=== PATIENT | female | born 1965 | race Caucasian/White ===

== ENCOUNTER 2018-04-20 15:25 | Inpatient (IN) | payer OTHER ==
--- OUTSIDE RECORDS SUMMARY | 2018-04-20 15:49 | XMS REPORT ---
:1965 Author Organization [facility] Address [address] [place] [address] Care Team Providers Name Role Phone Unavailable Unavailable Unavailable Payers Payer Name Policy Type Policy Number Effective Date Expiration Date Problems This patient has no known problems. Allergies, Adverse Reactions, Alerts Allergy Name Allergy Status Severity Reaction(s) Onset Inactive Treating Comments Type Date Date Clinician No Known DA Active U 2017-02 Allergies 0-17 00:00: 00 No Known DA Active U 2017-02 Allergies 0-16 00:00: 00 No Known Drug DA Active U 2000- Intolerances 3-06 00:00: 00 Medications This patient has no known medications.
[2018-04-20 16:38] LABS: Absolute Lymphocytes (CBC) 0.4 K/uL (0.7-4.9); Absolute Monocytes 0.3 K/uL (0.1-1.3); Absolute Neutrophil 0.3 K/uL (1.8-8.0); Basophils % 0.3 % (0-1.3); Hematocrit 31.2 % (36.0-45.0); Lymphocytes % 37.9 % (15.3-44.8); MPV 10.1 fL (7.6-11.3); Monocytes % 29.2 % (3.3-12.3); RBC Red Blood Cell Count 2.66 M/uL (3.86-4.86)
[2018-04-20 16:41] LABS: Protime INR 1.06
[2018-04-20 16:47] LABS: ALT/SGPT 30 U/L (12-78); AST/SGOT 22 U/L (15-37); Albumin 3.4 g/dL (3.4-5.0); Alkaline Phosphatase 77 U/L (45-117); BUN Blood Urea Nitrogen 12 mg/dL (7-18); Bicarbonate 28 mmol/L (21-32); Bilirubin Direct 0.1 mg/dL (0-0.2); Bilirubin Total 0.6 mg/dL (0.2-1.0); CKMB Creatine Kinase MB < 1.0 ng/mL (0.3-3.6); Creatine Phosphokinase 25 U/L (26-192); Glucose Level 106 mg/dL (74-106); Lipase 78 U/L (73-393); Potassium 3.1 mmol/L (3.5-5.1); Sodium Level 140 mmol/L (136-145); Troponin (Emerg Dept Use Only) < 0.02 ng/mL (0.0-0.045)
[2018-04-20] MEDS ORDERED: ACETAMINOPHEN 325 MG TABLET ONE (17:00)
[2018-04-20] MEDS ORDERED: NA CHLORIDE 0.9% 1,000 ML ONE (17:01)
[2018-04-20] MEDS ORDERED: ONDANSETRON 4 MG/2 ML VIAL ONE (17:01)
--- NOTE | 2018-04-20 17:08 | RAD REPORT ---
EXAM DESCRIPTION: RAD - Chest Single View - 04/20/2018 4:58 pm CLINICAL HISTORY: Cough, fever COMPARISON: June 2011 TECHNIQUE: AP portable chest image was obtained 1648 hours . FINDINGS: No pneumonia findings. Lung cramer are clear. Left-sided Port-A-Cath is in place. Breast i mplants or tissue expanders are in place. Heart and vasculature are normal. No measurable pleural eff usion and no pneumothorax. No acute bony abnormality seen. No acute aortic findings suspected. IMPRESSION: No acute cardiopulmonary process.
[2018-04-20 17:14] LABS: Platelet Estimate DECR
[2018-04-20 17:21] LABS: Blood Morphology Comment NOTED (NOT SEEN); Dohle Bodies PRESENT; Hypochromasia 1+
[2018-04-20 17:32] LABS: Urine Bacteria <20 /HPF (<20); Urine RBC <5 /HPF (NONE SEEN)
[2018-04-20 17:33] LABS: Urine Culture Reflex Order NOT NEEDED; Urine Mucus 3+ /HPF (NONE SEEN)
--- NOTE | 2018-04-20 17:41 | EDPHYS ---
Physician Documentation [facility] Name: Naz Wallis Age: 53 yrs Sex: Female : 1965 Arrival Date: 04/20/2018 Time: 15:29 Bed 24 Private MD: None, None ED Physician Maurice Ma HPI: 04/20 16:44 This 53 yrs old Female presents to ER via Ambulatory with complaints of pm1 Fever, Diarrhea. 16:45 The patient reports fever, that was measured at 102 degrees Fahrenheit. Onset: The pm1 symptoms/episode began/occurred 3 day(s) ago. Modifying factors: there are no obvious modifying factors. Associated signs and symptoms: Pertinent positives: cough, that is dry, diarrhea, nausea, sore throat. The patient has not experienced similar symptoms in the past. The patient has been recently seen at an urgent care, last week, for similar complaints, labs were performed, was given a prescription for antibiotics. Presenting with complaints of fever, cough, sore throat and diarrhea. Seen at urgent care 3 days ago and had negative strep and flu swab. Was discharged home with Augmentin. 2 days ago onset of nausea and diarrhea. Patient had her most recent chemotherapy treatment 6 days ago. 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 - Social history:: Smoking status: Patient/guardian denies using tobacco. - Ebola Screening: : No symptoms or risks identified at this time. ROS: 16:50 Eyes: Negative for injury, pain, redness, and discharge. pm1 16:50 Neck: Negative for injury, pain, and swelling, Cardiovascular: Negative for chest pain, palpitations, and edema. 16:50 Back: Negative for injury and pain, : Negative for injury, bleeding, discharge, and swelling, MS/Extremity: Negative for injury and deformity, Skin: Negative for injury, rash, and discoloration, Neuro: Negative for headache, weakness, numbness, tingling, and seizure. 16:50 Constitutional: Positive for body aches, fever, Negative for poor PO intake. 16:50 ENT: Positive for sore throat, Negative for drainage from ear(s), ear pain. 16:50 Respiratory: Positive for cough, Negative for shortness of breath, sputum production, wheezing. 16:50 Abdomen/GI: Positive for nausea, diarrhea, Negative for vomiting, constipation. Exam: 16:50 Constitutional: This is a well developed, well nourished patient who is awake, alert, pm1 and in no acute distress. Head/Face: Normocephalic, atraumatic. Eyes: Pupils equal round and reactive to light, extra-ocular motions intact. Lids and lashes normal. Conjunctiva and sclera are non-icteric and not injected. Cornea within normal limits. Periorbital areas with no swelling, redness, or edema. ENT: Nares patent. No nasal discharge, no septal abnormalities noted. Tympanic membranes are normal and external auditory canals are clear. Oropharynx with no redness, swelling, or masses, exudates, or evidence of obstruction, uvula midline. Mucous membranes moist. Neck: Trachea midline, no thyromegaly or masses palpated, and no cervical lymphadenopathy. Supple, full range of motion without nuchal rigidity, or vertebral point tenderness. No Meningismus. Chest/axilla: Normal chest wall appearance and motion. Nontender with no deformity. No lesions are appreciated. Cardiovascular: Regular rate and rhythm with a normal S1 and S2. No gallops, murmurs, or rubs. Normal PMI, no JVD. No pulse deficits. Respiratory: Lungs have equal breath sounds bilaterally, clear to auscultation and percussion. No rales, rhonchi or wheezes noted. No increased work of breathing, no retractions or nasal flaring. Abdomen/GI: Soft, non-tender, with normal bowel sounds. No distension or tympany. No guarding or rebound. No evidence of tenderness throughout. Back: No spinal tenderness. No costovertebral tenderness. Full range of motion. Skin: Warm, dry with normal turgor. Normal color with no rashes, no lesions, and no evidence of cellulitis. MS/ Extremity: Pulses equal, no cyanosis. Neurovascular intact. Full, normal range of motion. 16:50 Neuro: Orientation: is normal, Motor: is normal, moves all fours. Vital Signs: 15:37 BP 95 / 63; Pulse 105; Resp 18 S; Temp 99.8(O); Pulse Ox 97% on R/A; Weight 76.2 kg aa5 (R); Height 5 ft. 6 in. (167.64 cm) (R); Pain 7/10; 16:02 Temp 100.3; ls4 18:00 BP 106 / 70; Pulse 98; Resp 16; Pulse Ox 99% on R/A; Pain 3/10; ls4 19:39 BP 107 / 64; Pulse 89; Resp 16; Temp 99.9(O); Pulse Ox 99% on R/A; Pain 3/10; ls4 19:43 BP 107 / 69; Pulse 88; Resp 18; Pulse Ox 100% on R/A; mg2 15:37 Body Mass Index 27.11 (76.20 kg, 167.64 cm) aa5 MDM: 15:52 Patient medically screened. pm1 16:39 Data reviewed: vital signs. Data interpreted: Pulse oximetry: on room air is 97 %. pm1 Interpretation: normal. 17:30 ED course: Patient with absolute neutrophil count of 336. Will cover patient with broad pm1 spectrum antibiotics, Tamiflu, and admit patient. 17:39 Counseling: I had a detailed discussion with the patient and/or guardian regarding: the pm1 historical points, exam findings, and any diagnostic results supporting the discharge/admit diagnosis, lab results, radiology results, the need for further work-up and treatment in the hospital. 17:39 Physician consultation: Ruba Lew MD was called at 17:39, was contacted at 17:39, pm1 regarding admission, patient's condition, and will see patient. 04/20 16:03 Order name: Urine Culture pm04/20 16:03 Order name: Basic Metabolic Panel; Complete Time: 16:52 pm04/20 16:03 Order name: Blood Culture Adult (2) pm1 04/20 16:03 Order name: CBC with Diff; Complete Time: 17:24 pm04/20 16:03 Order name: Ckmb; Complete Time: 16:52 pm04/20 16:03 Order name: CPK; Complete Time: 16:52 pm04/20 16:03 Order name: Lactate; Complete Time: 16:52 pm04/20 16:03 Order name: LFT's; Complete Time: 16:52 pm04/20 16:03 Order name: Lipase; Complete Time: 16:52 pm04/20 16:03 Order name: Procalcitonin; Complete Time: 17:07 pm04/20 16:03 Order name: Protime (+inr); Complete Time: 17:02 pm04/20 16:03 Order name: Ptt, Activated; Complete Time: 17:02 pm04/20 16:03 Order name: Troponin (emerg Dept Use Only); Complete Time: 16:52 pm04/20 16:03 Order name: Urine Microscopic Only; Complete Time: 17:53 pm04/20 16:03 Order name: Chest Single View XRAY; Complete Time: 17:09 pm04/20 16:03 Order name: Flu; Complete Time: 17:02 pm04/20 16:03 Order name: Strep; Complete Time: 17:02 pm04/20 16:03 Order name: [place] Screen Profile; Complete Time: 17:05 pm04/20 16:56 Order name: Throat Culture EDKS 04/20 17:07 Order name: Urine Dipstick--Ancillary (enter results) 04/20 17:13 Order name: Manual Differential; Complete Time: 17:24 EDMS 04/20 17:53 Order name: Stool Culture 04/20 17:53 Order name: Ova And Parasites pm04/20 17:53 Order name: Fecal Leukocyte Stain 04/20 17:53 Order name: CDIFF 04/20 16:03 Order name: Cardiac monitoring; Complete Time: 16:25 pm04/20 16:03 Order name: EKG - Nurse/Tech; Complete Time: 16:25 pm04/20 16:03 Order name: IV Saline Lock - Large Bore; Complete Time: 16:25 pm04/20 16:03 Order name: Labs collected and sent; Complete Time: 16:25 pm04/20 16:03 Order name: O2 Per Protocol; Complete Time: 16:25 pm04/20 16:03 Order name: O2 Sat Monitoring; Complete Time: 16:25 pm04/20 16:03 Order name: Urine Dipstick-Ancillary (obtain specimen); Complete Time: 17:24 pm04/20 17:42 Order name: EKG Electrocardiogram; Complete Time: 18:34 EDMS Administered Medications: 17:02 Drug: Zofran 4 mg Route: IVP; Site: left hand; ls4 17:53 Follow up: Response: No adverse reaction; Marked relief of symptoms ls4 17:03 Drug: Tylenol 1000 mg Route: PO; ls4 18:35 Follow up: Response: No adverse reaction; Marked relief of symptoms ls4 17:49 Drug: Cefepime 1 grams Route: IVPB; Rate: 200 ml/hr; Infused Over: 30 mins; Site: left ls4 antecubital; 18:19 Follow up: IV Status: Completed infusion; IV Intake: 100ml ls4 17:49 Drug: Tamiflu 75 mg Route: PO; ls4 18:30 Follow up: Response: No adverse reaction ls4 18:30 Drug: vancoMYCIN 1 grams Route: IVPB; Infused Over: 2 hrs; Site: left antecubital; ls4 20:21 Follow up: Response: No adverse reaction; IV Status: Infusion continued upon admission mg2 18:53 Drug: Potassium Effervescent Tablet 50 mEq Route: PO; ls4 19:39 Follow up: Response: No adverse reaction ls4 Disposition: 22:48 Co-signature as Attending Physician, Maurice Ma MD. ma2 Disposition: 04/20/18 17:40 Hospitalization ordered by Ruba Lew for Inpatient Admission. Preliminary diagnosis are Neutropenic fever, Influenza due to identified novel influenza A virus, Diarrhea, unspecified. - Bed requested for Telemetry/MedSurg (Inpatient). - Status is Inpatient Admission. mg2 - Condition is Stable. - Problem is new. - Symptoms have improved. UTI on Admission? No Signatures: Dispatcher [employer] EDMS Lisset Benjamin RN RN aa5 Selam Montes De Oca RN RN cg Donovan Tovar NP [employer] pm1 Maurice Ma MD MD ma2 Jarod Ayala RN RN mg2 Neha Acevedo RN RN ls4 Corrections: (The following items were deleted from the chart) 17:53 17:40 Hospitalization Ordered by Ruba Lew MD for Inpatient Admission. Preliminary pm1 diagnosis is Neutropenic fever; Influenza due to identified novel influenza A virus. Bed requested for Telemetry/MedSurg (Inpatient). Status is Inpatient Admission. Condition is Stable. Problem is new. Symptoms have improved. UTI on Admission? No. pm1 19:38 17:53 04/20/2018 17:40 Hospitalization Ordered by Ruba Lew MD for Inpatient cg Admission. Preliminary diagnosis is Neutropenic fever; Influenza due to identified novel influenza A virus; Diarrhea, unspecified. Bed requested for Telemetry/MedSurg (Inpatient). Status is Inpatient Admission. Condition is Stable. Problem is new. Symptoms have improved. UTI on Admission? No. pm1 20:21 19:38 04/20/2018 17:40 Hospitalization Ordered by Ruba Lew MD for Inpatient mg2 Admission. Preliminary diagnosis is Neutropenic fever; Influenza due to identified novel influenza A virus; Diarrhea, unspecified. Bed requested for Telemetry/MedSurg (Inpatient). Status is Inpatient Admission. Condition is Stable. Problem is new. Symptoms have improved. UTI on Admission? No. cg
--- NOTE | 2018-04-20 17:41 | ER ---
Nurse's Notes [facility] Name: Naz Wallis Age: 53 yrs Sex: Female : 1965 Arrival Date: 04/20/2018 Time: 15:29 Bed 24 Private MD: None, None Diagnosis: Neutropenic fever;Influenza due to identified novel influenza A virus;Diarrhea, unspecified Presentation: 04/20 15:30 Presenting complaint: Patient states: fever, cough, and sore throat that began Friday. aa5 Pt reports nausea and diarrhea that began Friday. Pt reports being seen at urgent care on 04/17/18 negative strep swab, negative flu swab, and prescribed Augmentin. Pt reports Chemotherapy for breast cancer and last treatment was Friday, pt reports temp max of 102.0 F. 15:30 Transition of care: patient was not received from another setting of care. Onset of aa5 symptoms was March 2018. Risk Assessment: Do you want to hurt yourself or someone else? Patient reports no desire to harm self or others. Care prior to arrival: None. 15:30 Method Of Arrival: Ambulatory aa5 15:30 Acuity: ALISE 3 aa5 16:32 Initial Sepsis Screen: Does the patient meet any 2 criteria? Yes Does the patient have ls4 a suspected source of infection? Yes: Other: DIARRHEA. Triage Assessment: 15:53 General: Appears uncomfortable, Behavior is calm, cooperative. Neuro: No deficits ls4 noted. Cardiovascular: No deficits noted. Respiratory: Airway Respiratory effort is Respiratory pattern is Breath sounds are clear bilaterally. 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 - Social history:: Smoking status: Patient/guardian denies using tobacco. - Ebola Screening: : No symptoms or risks identified at this time. Screenin:45 Abuse screen: Denies threats or abuse. Denies injuries from another. Nutritional ls4 screening: No deficits noted. Tuberculosis screening: No symptoms or risk factors identified. Fall Risk None identified. Assessment: 15:45 Pain: Complains of pain in abdomen Pain currently is 7 out of 10 on a pain scale. GI: ls4 Abdomen is non-distended, Bowel sounds present X 4 quads. Reports diarrhea. Musculoskeletal: No deficits noted. 16:30 Neuro: Level of Consciousness is awake, alert, obeys commands. Respiratory: Airway is ls4 patent Trachea Respiratory effort is even, unlabored, Respiratory pattern is regular, Breath sounds are clear. 17:00 Reassessment: Patient and/or family updated on plan of care and expected duration. Pain ls4 level reassessed. Patient is alert, oriented x 3, equal unlabored respirations, skin warm/dry/pink. 18:00 Reassessment: Patient appears in no apparent distress at this time. Patient and/or ls4 family updated on plan of care and expected duration. Pain level reassessed. Patient is alert, oriented x 3, equal unlabored respirations, skin warm/dry/pink. 19:00 Reassessment: Patient appears in no apparent distress at this time. Patient and/or ls4 family updated on plan of care and expected duration. Pain level reassessed. Patient is alert, oriented x 3, equal unlabored respirations, skin warm/dry/pink. Vital Signs: 15:37 BP 95 / 63; Pulse 105; Resp 18 S; Temp 99.8(O); Pulse Ox 97% on R/A; Weight 76.2 kg aa5 (R); Height 5 ft. 6 in. (167.64 cm) (R); Pain 7/10; 16:02 Temp 100.3; ls4 18:00 BP 106 / 70; Pulse 98; Resp 16; Pulse Ox 99% on R/A; Pain 3/10; ls4 19:39 BP 107 / 64; Pulse 89; Resp 16; Temp 99.9(O); Pulse Ox 99% on R/A; Pain 3/10; ls4 19:43 BP 107 / 69; Pulse 88; Resp 18; Pulse Ox 100% on R/A; mg2 15:37 Body Mass Index 27.11 (76.20 kg, 167.64 cm) aa5 ED Course: 15:29 Patient arrived in ED. mr 15:30 None, None is Private Physician. mr 15:36 Triage completed. aa5 15:37 Arm band placed on. aa5 15:45 Neha Acevedo, RN is Primary Nurse. ls4 15:45 Patient has correct armband on for positive identification. Placed in gown. Bed in low ls4 position. Call light in reach. Side rails up X 1. manager monitoring on. Pulse ox on. NIBP on. 15:45 No provider procedures requiring assistance completed. ls4 15:50 Donovan Tovar NP is PHCP. pm1 15:50 Maurice Ma MD is Attending Physician. pm1 16:58 Chest Single View XRAY In Process Unspecified. EDMS 17:07 EKG done, by audio/video technician. reviewed by Donovan Tovar NP. sm3 17:40 Ruba Lew MD is Hospitalizing Provider. pm1 18:39 Throat Culture Sent. ls4 20:02 Patient admitted, IV remains in place. mg2 Administered Medications: 17:02 Drug: Zofran 4 mg Route: IVP; Site: left hand; ls4 17:53 Follow up: Response: No adverse reaction; Marked relief of symptoms ls4 17:03 Drug: Tylenol 1000 mg Route: PO; ls4 18:35 Follow up: Response: No adverse reaction; Marked relief of symptoms ls4 17:49 Drug: Cefepime 1 grams Route: IVPB; Rate: 200 ml/hr; Infused Over: 30 mins; Site: left ls4 antecubital; 18:19 Follow up: IV Status: Completed infusion; IV Intake: 100ml ls4 17:49 Drug: Tamiflu 75 mg Route: PO; ls4 18:30 Follow up: Response: No adverse reaction ls4 18:30 Drug: vancoMYCIN 1 grams Route: IVPB; Infused Over: 2 hrs; Site: left antecubital; ls4 20:21 Follow up: Response: No adverse reaction; IV Status: Infusion continued upon admission mg2 18:53 Drug: Potassium Effervescent Tablet 50 mEq Route: PO; ls4 19:39 Follow up: Response: No adverse reaction ls4 Intake: 18:19 IV: 100ml; Total: 100ml. ls4 Outcome: 17:40 Decision to Hospitalize by Provider. pm1 20:02 Admitted to Tele accompanied by keny, via wheelchair, room 418, with chart, Report mg2 called to ZAKI Wong 20:02 Condition: good 20:02 Instructed on the need for admit, Demonstrated understanding of instructions. 20:21 Patient left the ED. mg2 Signatures: Dispatcher [employer] EDIN Nikki Mackay, Lisset, RN RN aa5 Donovan Tovar, OLIVE GROWER OLIVE GROWER pm1 Jarod Ayala RN RN mg2 Beverly Aguiar sm3 Neha Acevedo RN RN ls4 Corrections: (The following items were deleted from the chart) 16:02 15:37 BP 95 / 63; Pulse 105bpm; Resp 18bpm; Spontaneous; Pulse Ox 97% RA; Temp 105F; ls4 76.2 kg Reported; Height 5 ft. 6 in. Reported; BMI: 27.1; Pain 7/10; aa5 16:03 15:37 BP 95 / 63; Pulse 105bpm; Resp 18bpm; Spontaneous; Pulse Ox 97% RA; Temp 100.5F; aa5 76.2 kg Reported; Height 5 ft. 6 in. Reported; BMI: 27.1; Pain 7/10; ls4
[2018-04-20] MEDS ORDERED: NA CHLORIDE 0.9% 250 ML ONE (17:50)
[2018-04-20] MEDS ORDERED: VANCOMYCIN 1 GM/VIAL ONE (17:50)
[2018-04-20] MEDS ORDERED: OSELTAMIVIR 75 MG CAP ONE (17:50)
[2018-04-20] MEDS ORDERED: CEFEPIME 1 GM/100 ML BAG IV ONE ×2 (17:51→23:15)
--- NOTE | 2018-04-20 18:36 | EKG ---
Test Date: 2018-04-20 Test Time: 16:49:10 Headlight Adjuster: MANNIE MEASUREMENT RESULTS: Intervals: Rate: 91 TX: 146 QRSD: 76 QT: 374 QTc: 460 [place]: P: 55 TX: 146 QRS: 31 T: 54 INTERPRETIVE STATEMENTS: Normal sinus rhythm Nonspecific T wave abnormality Abnormal ECG No previous ECG available for comparison Electronically Signed On 04-20-18 18:35:24 DIRECTOR OF CAMPUS RECREATION by Reinier Andino
[2018-04-20] MEDS ORDERED: POTASSIUM 25 MEQ EFFERV TAB ONE (19:04)
[2018-04-20 20:29] LABS: Urine Blood NEGATIVE (NEG); Urine Glucose NEGATIVE (NEG); Urine Protein 2+ (NEG)
[2018-04-20] MEDS ORDERED: ONDANSETRON 4 MG/2 ML VIAL IV PRN (20:38)
[2018-04-20] MEDS ORDERED: VANCOMYCIN/NS 1 gm 1 GM/250 ML BAG IVPB SCH (20:38)
[2018-04-20] MEDS: OSELTAMIVIR 75 MG CAP PO SCH (21:00)
[2018-04-20] MEDS ORDERED: CEFEPIME 2 GM VIAL IV SCH (21:00)
[2018-04-20] MEDS ORDERED: VANCOMYCIN 1.5 GM in NA CHLORIDE 0.9% 500 ML IVPB SCH (22:00)
[2018-04-20] MEDS ORDERED: OXYCODONE HCL 5 MG TAB PO PRN (22:08)
[2018-04-20] MEDS ORDERED: CEFEPIME 2 GM VIAL IV ONE (22:30)
[2018-04-20 22:37] VITALS: BMI 27.1
[2018-04-20] MEDS ORDERED: VANCOMYCIN 500 MG in NA CHLORIDE 0.9% 100 ML IVPB ONE (22:45)
[2018-04-20] MEDS ORDERED: VANCOMYCIN 500 MG in NA CHLORIDE 0.9% 100 ML IVPB SCH (22:45)
[2018-04-20] MEDS: TEMAZEPAM 15 MG CAP PO PRN (23:05)
[2018-04-20] MEDS: NA CHLORIDE 0.9% 1,000 ML IV SCH (23:06)
[2018-04-20] MEDS ORDERED: VANCOMYCIN 500 MG/VIAL ONE (23:08)
[2018-04-20] MEDS ORDERED: NA CHLORIDE 0.9% 100 ML IV ONE (23:11)
[2018-04-21 00:44] LABS: BUN Blood Urea Nitrogen 10 mg/dL (7-18); Bicarbonate 30 mmol/L (21-32); Glucose Level 126 mg/dL (74-106); Potassium 3.6 mmol/L (3.5-5.1); Sodium Level 143 mmol/L (136-145)
[2018-04-21] MEDS ORDERED: POTASSIUM 25 MEQ EFFERV TAB PO ONE ×2 (01:08→05:33)
[2018-04-21] MEDS: TEMAZEPAM 15 MG CAP PO PRN ×2 (01:20→21:23)
[2018-04-21] MEDS ORDERED: ONDANSETRON 4 MG (ODT) TAB PO PRN (02:53)
--- NOTE | 2018-04-21 02:57 | P.HP ---
Certification for Inpatient Patient admitted to: Inpatient With expected LOS: >2 Midnights Patient will require the following post-hospital care: None Practitioner: I am a practitioner with admitting privileges, knowledge of patient current condition, hospital course, and medical plan of care. Services: Services provided to patient in accordance with Admission requirements found in Title 42 Section 412.3 of the Code of Federal Regulations Patient History Date of Service: 04/20/18 Reason for admission: Neutropenic fever/influenza pneumonia History of Present Illness: Patient is a 53-year-old female who was admitted to the hospital with a fever and in the emergency room she was found have influenza pneumonia. Patient was diagnose with breast cancer a few months prior her. She was stage IB. She has been undergoing chemotherapy. This has been at [facility]. She has been doing well and I believe she finished her last round of chemotherapy. Afterwards, she was given Neulasta. Her current white count is 1,000 white blood cells per microliter year. Her absolute neutrophil count is 300 neutrophils per microliter. Continue with Tamiflu and will give Neupogen in a.m. if white count stays low. Clinically, she appears to be doing better. She says she feels much better from when she 1st came into the ER. She also has a significant macrocytic anemia along with thrombocytopenia. She was hypokalemic as well. Will continue monitoring her very closely while she is on the floor in reverse isolation. Allergies tramadol Adverse Reaction (Mild, Verified 04/20/18 21:25) Anaphylaxis Home Medications: Fluoxetine HCl [Prozac] 1 cap PO DAILY 04/20/18 Gabapentin 1 tab PO BID 04/20/18 Ondansetron HCl 1 tab PO Q6H PRN 04/20/18 Oxycodone HCl [Roxicodone] 1 tab PO Q4H PRN 04/20/18 Topiramate 2 tab PO DAILY 04/20/18 - Past Medical/Surgical History Has patient received pneumonia vaccine in the past: No Diabetic: No -: Breast Cancer -: Double Mastectomy -: Breast Implant removed -: Hemorrhoidectomy -: Nose Surgery - Family History Father Medical History: Heart disease Notes: Heart Attack Brother Medical History: Diabetes - Social History Smoking Status: Never smoker Alcohol use: Yes CD- Drugs: No Caffeine use: Yes Place of Residence: Home Review of Systems 10-point ROS is otherwise unremarkable Physical Examination - Vital Signs Temperature: 97.3 F Blood Pressure: 100/65 Pulse: 80 Respirations: 16 Pulse Ox (%): 98 - Physical Exam General: Alert, In no apparent distress, Oriented x3 HEENT: Atraumatic, PERRLA, Mucous membr. moist/pink, EOMI, Sclerae nonicteric Neck: Supple, 2+ carotid pulse no bruit, No LAD, Without JVD or thyroid abnormality Respiratory: Clear to auscultation bilaterally, Normal air movement Cardiovascular: Regular rate/rhythm, Normal S1 S2, No murmurs Gastrointestinal: Normal bowel sounds, Soft and benign, Non-distended, No tenderness Musculoskeletal: No clubbing, No swelling, No tenderness Integumentary: No rashes Neurological: Normal gait, Normal speech, Normal strength at 5/5 x4 extr, Normal tone, Normal affect Lymphatics: No axilla or inguinal lymphadenopathy - Studies Laboratory Data (last 24 hrs) 04/20/18 16:16: PT 12.5, INR 1.06, APTT 26.2 04/20/18 16:16: WBC 1.0 L*, Hgb 10.9 L, Hct 31.2 L, Plt Count 55 L 04/20/18 16:16: Sodium 140, Potassium 3.1 L, BUN 12, Creatinine 0.85, Glucose 106, Total Bilirubin 0.6, AST 22, ALT 30, Alkaline Phosphatase 77, Lipase 78 Microbiology Data (last 24 hrs): 04/20/18 16:20 Throat Group A Streptococcus Rapid Screen - Final 04/20/18 16:20 Nasopharnyx Influenza Type A Antigen Screen - Final 04/20/18 16:20 Nasopharnyx Influenza Type B Antigen Screen - Final Assessment & Plan - Problems (Diagnosis) (1) Neutropenic fever Current Visit: Yes Status: Acute (2) Breast cancer stage T1b, greater than 0.5 cm and less than or equal to 1 cm in greatest dimension Current Visit: Yes Status: Acute (3) Hypokalemia Current Visit: Yes Status: Acute (4) Thrombocytopenia Current Visit: Yes Status: Acute (5) Macrocytic anemia Current Visit: Yes Status: Acute (6) Influenza, pneumonia Current Visit: Yes Status: Acute - Plan 1. Continue with Tamiflu 2. Monitor white count and neupogen if counts are still low 3. Repeat chest x-ray 4. O2 per protocol 5. Continue with nebs as needed 6. Workup macrocytic anemia-most likely related to chemo but will check additional labs 7. Continue with gentle hydration 8. GI and DVT prophylaxis Discharge Plan: Home Plan to discharge in: Greater than 2 days - Advance Directives Does patient have a Living Will: No Does patient have a Durable POA for Healthcare: No - Code Status/Comfort Care Code Status Assessed: Yes Code Status: Full Code Critical Care: No Time Spent Managing PTS Care (In Minutes): 50
[2018-04-21 04:44] LABS: Absolute Lymphocytes (CBC) 0.9 K/uL (0.7-4.9); Absolute Monocytes 0.3 K/uL (0.1-1.3); Absolute Neutrophil 0.6 K/uL (1.8-8.0); Basophils % 0.2 % (0-1.3); Eosinophils % 0.7 % (0-4.4); Hematocrit 27.8 % (36.0-45.0); Lymphocytes % 47.9 % (15.3-44.8); MPV 10.3 fL (7.6-11.3); RBC Red Blood Cell Count 2.39 M/uL (3.86-4.86)
[2018-04-21 05:06] LABS: ALT/SGPT 26 U/L (12-78); AST/SGOT 19 U/L (15-37); Albumin 3.1 g/dL (3.4-5.0); Alkaline Phosphatase 69 U/L (45-117); BUN Blood Urea Nitrogen 9 mg/dL (7-18); Bicarbonate 31 mmol/L (21-32); Bilirubin Total 0.4 mg/dL (0.2-1.0); Glucose Level 93 mg/dL (74-106); Magnesium 1.5 mg/dL (1.8-2.4); Potassium 3.6 mmol/L (3.5-5.1); Protein, Total 6.3 g/dL (6.4-8.2); Sodium Level 143 mmol/L (136-145)
[2018-04-21 05:32] LABS: C-Reactive Protein 10.3 mg/L (<3.00); Ferritin 332.5 ng/mL (8-388); Folic Acid, (Folate) 19.8 ng/mL (3.1-17.5)
[2018-04-21] MEDS ORDERED: MAGNESIUM SULFATE 1 gm IVPB 1 GM/100 ML BAG IV ONE (05:33)
[2018-04-21] MEDS ORDERED: OXYCODONE HCL 5 MG TAB PO PRN (06:00)
[2018-04-21] MEDS: NA CHLORIDE 0.9% 1,000 ML IV SCH ×3 (06:38→21:25)
[2018-04-21] MEDS ORDERED: CEFEPIME 2 GM VIAL IV SCH (09:00)
[2018-04-21] MEDS: CEFEPIME/SWI 2gm 2 GM/20 ML SYR IV SCH ×2 (09:34→21:22)
[2018-04-21] MEDS: OSELTAMIVIR 75 MG CAP PO SCH ×2 (09:35→21:23)
[2018-04-21] MEDS: GABAPENTIN 300 MG CAP PO SCH ×2 (09:35→21:23)
[2018-04-21] MEDS: TOPIRAMATE 25 MG TAB PO SCH (09:36)
[2018-04-21] MEDS: FLUOXETINE 20 MG CAP PO SCH (09:36)
[2018-04-21] MEDS: VANCOMYCIN 1.5 GM in NA CHLORIDE 0.9% 500 ML IVPB SCH ×2 (11:15→23:00)
[2018-04-21] MEDS: ACETAMINOPHEN 500 MG TAB PO PRN (16:00)
--- NOTE | 2018-04-21 18:41 | P.PN ---
Subjective Date of Service: 04/21/18 Chief Complaint: Neutropenic fever/influenza pneumonia Subjective: No new changes, No C/O voiced Patient seen and examined at bedside. Mother at bedside. Chart reviewed and case discussed with nursing staff. Review of Systems 10-point ROS is otherwise unremarkable Physical Examination - Vital Signs Temperature: 100.3 F Blood Pressure: 99/55 Pulse: 90 Respirations: 18 Pulse Ox (%): 98 - Physical Exam General: Alert, In no apparent distress, Oriented x3 HEENT: Atraumatic, PERRLA, EOMI Neck: Supple, JVD not distended Respiratory: Clear to auscultation bilaterally, Normal air movement Cardiovascular: Regular rate/rhythm, Normal S1 S2 Gastrointestinal: Normal bowel sounds, No tenderness Musculoskeletal: No tenderness Integumentary: No rashes Neurological: Normal speech, Normal tone, Normal affect Lymphatics: No axilla or inguinal lymphadenopathy - Studies Microbiology Data (last 24 hrs): 04/20/18 16:20 Throat Group A Streptococcus Rapid Screen - Final 04/20/18 16:20 Nasopharnyx Influenza Type A Antigen Screen - Final 04/20/18 16:20 Nasopharnyx Influenza Type B Antigen Screen - Final Assessment And Plan - Plan (1) Neutropenic fever (2) Breast cancer stage T1b, greater than 0.5 cm and less than or equal to 1 cm in greatest dimension (3) Hypokalemia (4) Thrombocytopenia (5) Macrocytic anemia (6) Influenza, pneumonia - Plan 1. Continue with Tamiflu 2. Monitor white count and neupogen if counts are still low 3. Repeat chest x-ray tomorrow. 4. O2 per protocol 5. Continue with nebs as needed 6. Macrocytic anemia, likely related to chemo 7. Continue with gentle hydration 8. GI and DVT prophylaxis
[2018-04-21] MEDS ORDERED: LORazepam 2 MG/ML VIAL IV ONE (23:51)
--- NOTE | 2018-04-22 08:25 | RAD REPORT ---
EXAM DESCRIPTION: RAD - Chest Single View - 04/22/2018 8:07 am CLINICAL HISTORY: PNA Chest pain. COMPARISON: Chest Single View dated 04/20/2018; CHEST PA AND LAT 2 VIEW dated 07/21/2011; CHEST SINGLE VIEW dated 06/13/2009; ABDOMEN ACUTE SERIES dated 09/18/2008 FINDINGS: Portable technique limits examination quality. The lungs are grossly clear. The heart is normal in size. No displaced fractures.Left-sided port cath eter its tip in the SVC. IMPRESSION: No acute intrathoracic process suspected.
[2018-04-22] MEDS: CEFEPIME/SWI 2gm 2 GM/20 ML SYR IV SCH ×2 (10:09→21:31)
[2018-04-22] MEDS: FLUOXETINE 20 MG CAP PO SCH (10:09)
[2018-04-22] MEDS: TOPIRAMATE 25 MG TAB PO SCH (10:09)
[2018-04-22] MEDS: GABAPENTIN 300 MG CAP PO SCH ×2 (10:10→21:32)
[2018-04-22] MEDS: OSELTAMIVIR 75 MG CAP PO SCH ×2 (10:10→21:32)
[2018-04-22 10:19] LABS: Absolute Monocytes 0.5 K/uL (0.1-1.3); Absolute Neutrophil 2.6 K/uL (1.8-8.0); Eosinophils % 0.4 % (0-4.4); Hematocrit 25.1 % (36.0-45.0); Monocytes % 11.7 % (3.3-12.3); RBC Red Blood Cell Count 2.13 M/uL (3.86-4.86)
[2018-04-22 10:43] LABS: ALT/SGPT 19 U/L (12-78); AST/SGOT 13 U/L (15-37); Albumin 2.7 g/dL (3.4-5.0); Alkaline Phosphatase 61 U/L (45-117); BUN Blood Urea Nitrogen 4 mg/dL (7-18); Bicarbonate 27 mmol/L (21-32); Bilirubin Total 0.2 mg/dL (0.2-1.0); Glucose Level 118 mg/dL (74-106); Protein, Total 5.6 g/dL (6.4-8.2); Sodium Level 147 mmol/L (136-145)
[2018-04-22] MEDS: NA CHLORIDE 0.9% 1,000 ML IV SCH ×2 (13:16→22:38)
[2018-04-22] MEDS ORDERED: POTASSIUM CL SA 10 MEQ TAB PO ONE ×3 (16:00→23:16)
--- NOTE | 2018-04-22 18:30 | P.PN ---
Subjective Date of Service: 04/22/18 Chief Complaint: Neutropenic fever/influenza pneumonia Subjective: Improving Patient seen and examined at bedside. Mother at bedside. Chart reviewed and case discussed with nursing staff. Review of Systems 10-point ROS is otherwise unremarkable Physical Examination - Vital Signs Temperature: 97.0 F Blood Pressure: 95/60 Pulse: 80 Respirations: 18 Pulse Ox (%): 99 - Physical Exam General: Alert, In no apparent distress, Oriented x3 HEENT: Atraumatic, PERRLA, EOMI Neck: Supple, JVD not distended Respiratory: Clear to auscultation bilaterally, Normal air movement Cardiovascular: Regular rate/rhythm, Normal S1 S2 Gastrointestinal: Normal bowel sounds, No tenderness Musculoskeletal: No tenderness Integumentary: No rashes Neurological: Normal speech, Normal tone, Normal affect Lymphatics: No axilla or inguinal lymphadenopathy - Studies Microbiology Data (last 24 hrs): 04/20/18 16:20 Throat Culture & Sensitivity - Final 04/20/18 17:00 Clean Catch Urine [place] Count - Final 04/20/18 17:00 Clean Catch Urine - Final Assessment And Plan - Plan (1) Neutropenic fever (2) Breast cancer stage T1b, greater than 0.5 cm and less than or equal to 1 cm in greatest dimension (3) Hypokalemia (4) Thrombocytopenia (5) Macrocytic anemia (6) Influenza, pneumonia - Plan 1. Continue with Tamiflu 2. Improving white count. Monitor white count and neupogen if counts are still low 3. Repeat chest x-ray with no acute abnormalities. 4. O2 per protocol 5. Continue with nebs as needed 6. Macrocytic anemia, likely related to chemo 7. Continue with gentle hydration 8. GI and DVT prophylaxis Disposition: Likely discharge home in the next 24-48 hr as CBC stable and clinically improving. Afebrile overnight
[2018-04-22] MEDS ORDERED: LOPERAMIDE HCL 2 MG CAPSULE PO PRN (18:50)
[2018-04-22] MEDS ORDERED: VANCOMYCIN 1.5 GM in NA CHLORIDE 0.9% 500 ML IVPB SCH (21:00)
[2018-04-22] MEDS: TEMAZEPAM 15 MG CAP PO PRN (21:31)
[2018-04-22] MEDS ORDERED: LORazepam 2 MG/ML VIAL IV ONE (22:18)
[2018-04-23 05:48] LABS: BUN Blood Urea Nitrogen 3 mg/dL (7-18); Bicarbonate 26 mmol/L (21-32); Glucose Level 96 mg/dL (74-106); Potassium 3.9 mmol/L (3.5-5.1); Sodium Level 146 mmol/L (136-145)
[2018-04-23] MEDS ORDERED: POTASSIUM CL SA 10 MEQ TAB PO ONE (07:26)
[2018-04-23] MEDS ORDERED: Magnesium Sulfate 2gm IVPB 2 G/50 ML BAG IV ONE (07:28)
[2018-04-23] MEDS: FLUOXETINE 20 MG CAP PO SCH (09:53)
[2018-04-23] MEDS: CEFEPIME/SWI 2gm 2 GM/20 ML SYR IV SCH (09:54)
[2018-04-23] MEDS: NA CHLORIDE 0.9% 1,000 ML IV SCH (09:54)
[2018-04-23] MEDS: TOPIRAMATE 25 MG TAB PO SCH (09:55)
[2018-04-23] MEDS: OSELTAMIVIR 75 MG CAP PO SCH (09:55)
[2018-04-23] MEDS: GABAPENTIN 300 MG CAP PO SCH (09:55)
[2018-04-23] MEDS: ACETAMINOPHEN 500 MG TAB PO PRN (10:14)
[2018-04-23 11:50] VITALS: O2SAT 97
[2018-04-23 13:22] VITALS: BP 94/55; TEMP 98.7
--- NOTE | 2018-04-23 18:22 | P.DS ---
Admission Date: 04/20/18 Discharge Date: 04/23/18 Disposition: ROUTINE DISCHARGE Discharge Condition: GOOD Reason for Admission: Neutropenic fever/influenza pneumonia Brief History of Present Illness: Patient is a 53-year-old female who was admitted to the hospital with a fever and in the emergency room she was found have influenza pneumonia. Patient was diagnose with breast cancer a few months prior her. She was stage IB. She has been undergoing chemotherapy. This has been at [facility]. She has been doing well and I believe she finished her last round of chemotherapy. Afterwards, she was given Neulasta. Her current white count is 1,000 white blood cells per microliter year. Her absolute neutrophil count is 300 neutrophils per microliter. Continue with Tamiflu and will give Neupogen in a.m. if white count stays low. Clinically, she appears to be doing better. She says she feels much better from when she 1st came into the ER. She also has a significant macrocytic anemia along with thrombocytopenia. She was hypokalemic as well. Will continue monitoring her very closely while she is on the floor in reverse isolation. Hospital Course: (1) Neutropenic fever (2) Breast cancer stage T1b, greater than 0.5 cm and less than or equal to 1 cm in greatest dimension (3) Hypokalemia (4) Thrombocytopenia (5) Macrocytic anemia (6) Influenza, pneumonia Patient was started on Tamiflu. Provided supportive care with oxygen and fluids. She was given nebulizer treatments as needed. Her white count improved , symptoms improved. Repeat chest x-ray was without any acute abnormalities. Prior to discharge, she was feeling better, asymptomatic, WBC count improved, she was afebrile for more than 24 hr and she was hemodynamically stable. She was discharged home to complete a 5 day course of Tamiflu. She was instructed to follow up with her oncologist next week. Vital Signs/Physical Exam: Temp Pulse Resp BP Pulse Ox 98.7 F 79 16 94/55 L 99 04/23/18 12:00 04/23/18 12:00 04/23/18 12:00 04/23/18 12:04/23/18 12:00 General: Alert, In no apparent distress, Oriented x3 HEENT: Atraumatic, PERRLA, EOMI Neck: Supple, JVD not distended Respiratory: Clear to auscultation bilaterally, Normal air movement Cardiovascular: Regular rate/rhythm, Normal S1 S2 Gastrointestinal: Normal bowel sounds, No tenderness Musculoskeletal: No tenderness Integumentary: No rashes Neurological: Normal speech, Normal tone, Normal affect Lymphatics: No axilla or inguinal lymphadenopathy Laboratory Data at Discharge: WBC 4.0 K/uL (4.3-10.9) L D 04/22/18 09:58 Hgb 8.7 g/dL (12.0-15.0) L 04/22/18 09:58 Hct 25.1 % (36.0-45.0) L 04/22/18 09:58 Plt Count 61 K/uL (152-406) L 04/22/18 09:58 PT 12.5 SECONDS (9.5-12.5) 04/20/18 16:16 INR 1.06 04/20/18 16:16 APTT 26.2 SECONDS (24.3-36.9) 04/20/18 16:16 Sodium 146 mmol/L (136-145) H 04/23/18 05:25 Potassium 3.9 mmol/L (3.5-5.1) 04/23/18 05:25 BUN 3 mg/dL (7-18) L 04/23/18 05:25 Creatinine 0.55 mg/dL (0.55-1.3) 04/23/18 05:25 Glucose 96 mg/dL (74-106) 04/23/18 05:25 Magnesium 1.5 mg/dL (1.8-2.4) L 04/23/18 05:25 Total Bilirubin 0.2 mg/dL (0.2-1.0) 04/22/18 09:58 AST 13 U/L (15-37) L 04/22/18 09:58 ALT 19 U/L (12-78) 04/22/18 09:58 Alkaline Phosphatase 61 U/L (45-117) 04/22/18 09:58 Lipase 78 U/L (73-393) 04/20/18 16:16 Home Medications: Fluoxetine HCl [Prozac] 1 cap PO DAILY 04/20/18 Gabapentin 1 tab PO BID 04/20/18 Ondansetron HCl 1 tab PO Q6H PRN 04/20/18 Oxycodone HCl [Roxicodone] 1 tab PO Q4H PRN 04/20/18 Topiramate 2 tab PO DAILY 04/20/18 Oseltamivir [Tamiflu*] 75 mg PO BID #4 cap 04/23/18 New Medications: Oseltamivir [Tamiflu*] 75 mg PO BID #4 cap Patient Discharge Instructions: Please follow up with an oncologist in 3-5 days. Title please return to the emergency room for worsening symptoms, including fevers, chills, shortness of breath or other worsening symptoms. Diet: Regular Activity: Ad chinmay Time spent managing pt's care (in minutes): 55
== END 2018-04-23 12:53 | disposition home or self-care (01) | DRG 808 ==
LOC: ER 15:25 → ERHOLD 17:51 → 4TH 20:02
PROVIDERS: ADMIT Family Medicine; ATTEND Family Medicine
DX: D70.9 Neutropenia, unspecified (principal); J09.X1 Influenza due to identified novel influenza A virus with pneumonia; R50.81 Fever presenting with conditions classified elsewhere; E87.6 Hypokalemia; C50.919 Malignant neoplasm of unspecified site of unspecified female breast; Z92.21 Personal history of antineoplastic chemotherapy; D69.6 Thrombocytopenia, unspecified; D53.9 Nutritional anemia, unspecified; Z90.13 Acquired absence of bilateral breasts and nipples; R19.7 Diarrhea, unspecified
CPT/HCPCS: 36415; 71045; 80048; 80053; 80076; 80202; 81003; 81015; 82550; 82553; 82607; 82728; 82746; 83540; 83605; 83690; 83735; 84132; 84145; 84466; 84484; 85025; 85610; 85652; 85730; 86140; 86308; 87040; 87045; 87046; 87070; 87081; 87086; 87088; 87177; 87209; 87493; 87804; 89055; 93005; 94760; 96365; 96367; 96375; 99285; J0692; J2405; J3475; J7030

== ENCOUNTER 2018-05-01 10:50 | Emergency (ER) | payer OTHER ==
--- OUTSIDE RECORDS SUMMARY | 2018-05-01 10:53 | XMS REPORT ---
:1965 [facility] Address [address] [place] [address] Care Team Providers Name Role Phone Unavailable [...]
--- NOTE | 2018-05-01 13:03 | RAD REPORT ---
EXAM DESCRIPTION: RAD - Chest Pa And Lat (2 Views) - 05/01/2018 12:57 pm CLINICAL HISTORY: Fever;Cough Chest pain. COMPARISON: Chest Single View dated 04/22/2018; Chest Single View dated 04/20/2018; CHEST PA AND LAT 2 VIEW dated 07/21/2011; CHEST SINGLE VIEW dated 06/13/2009 FINDINGS: The lungs are clear. The heart is normal in size. No displaced fractures. Left-sided port catheter its tip in the SVC. IMPRESSION: No acute or concerning finding suspected.
[2018-05-01 13:12] LABS: Protime INR 0.96
[2018-05-01 13:16] LABS: Urine Blood NEGATIVE (NEG); Urine Glucose NEGATIVE (NEG); Urine Protein NEGATIVE (NEG); Urine Specific Gravity 1.015 (1.005-1.030)
[2018-05-01 13:21] LABS: Urine Bacteria <20 /HPF (<20); Urine RBC <5 /HPF (NONE SEEN)
[2018-05-01 13:22] LABS: Urine Culture Reflex Order NOT NEEDED
[2018-05-01 13:24] LABS: ALT/SGPT 40 U/L (12-78); AST/SGOT 41 U/L (15-37); Albumin 3.1 g/dL (3.4-5.0); Alkaline Phosphatase 78 U/L (45-117); BUN Blood Urea Nitrogen 9 mg/dL (7-18); Bicarbonate 25 mmol/L (21-32); Bilirubin Direct 0.1 mg/dL (0-0.2); Bilirubin Total 0.3 mg/dL (0.2-1.0); CKMB Creatine Kinase MB < 1.0 ng/mL (0.3-3.6); Creatine Phosphokinase 49 U/L (26-192); Glucose Level 98 mg/dL (74-106); Lipase 102 U/L (73-393); Potassium 3.8 mmol/L (3.5-5.1); Protein, Total 6.4 g/dL (6.4-8.2); Sodium Level 141 mmol/L (136-145); Troponin (Emerg Dept Use Only) < 0.02 ng/mL (0.0-0.045)
[2018-05-01 14:36] LABS: Absolute Lymphocytes (CBC) 1.1 K/uL (0.7-4.9); Absolute Monocytes 0.9 K/uL (0.1-1.3)
[2018-05-01 14:46] LABS: Basophils % 0.5 % (0-1.3); Eosinophils % 0.3 % (0-4.4); Hematocrit 27.6 % (36.0-45.0); Lymphocytes % 13.9 % (15.3-44.8); MPV 9.2 fL (7.6-11.3); Monocytes % 10.7 % (3.3-12.3); RBC Red Blood Cell Count 2.29 M/uL (3.86-4.86)
[2018-05-01 15:54] LABS: Blood Morphology Comment NOTED (NOT SEEN); Platelet Estimate DECR; Urine White Blood Cell Casts OK
[2018-05-01 15:55] LABS: Anisocytosis 1+; Macrocytosis 3+
--- NOTE | 2018-05-01 16:07 | ER ---
Nurse's Notes [facility] Name: Naz Wallis Age: 53 yrs Sex: Female : 1965 Arrival Date: 05/01/2018 Time: 10:52 Bed 4 Private MD: Diagnosis: Acute upper respiratory infection, unspecified Presentation: 05/01 11:06 Presenting complaint: Patient states: fever continues, was seen here last Friday and dx sv with flu and admitted. Tmax 101. Transition of care: patient was not received from another setting of care. Onset of symptoms was April 20, 2018. Care prior to arrival: None. 11:06 Method Of Arrival: Ambulatory sv 11:06 Acuity: ALISE 3 sv 16:25 Risk Assessment: Do you want to hurt yourself or someone else? Patient reports no aj1 desire to harm self or others. Initial Sepsis Screen: Does the patient meet any 2 criteria? No. Patient's initial sepsis screen is negative. Does the patient have a suspected source of infection? Yes: Productive cough/pneumonia. Triage Assessment: 11:06 General: Appears in no apparent distress. comfortable, Behavior is calm, cooperative, sv appropriate for age. Pain: Complains of pain in "all over" Pain currently is 5 out of 10 on a pain scale. Neuro: Level of Consciousness is awake, alert, obeys commands, Oriented to person, place, time, situation, Gait is steady. Respiratory: Respiratory effort is even, unlabored, Respiratory pattern is regular, symmetrical. Historical: - Allergies: 11:07 tramadol; sv - PMHx: 11:07 breast cancer; sv - PSHx: 11:07 double mastectomy; Breast implants; hemorroidectomy; nose; sv - Immunization history:: Adult Immunizations up to date. - Social history:: Smoking status: unknown. - Ebola Screening: : Patient denies travel to an Ebola-affected area in the 21 days before illness onset. Screenin:57 Abuse screen: Denies threats or abuse. Denies injuries from another. Nutritional aj1 screening: No deficits noted. Tuberculosis screening: No symptoms or risk factors identified. 16:26 Fall Risk None identified. aj1 Assessment: 11:57 General: Appears in no apparent distress. uncomfortable, Behavior is calm, cooperative, aj1 appropriate for age. Pain: Denies pain. Neuro: Level of Consciousness is awake, alert, obeys commands, Oriented to person, place, time, situation. Cardiovascular: Patient's skin is warm and dry. Respiratory: Reports cough that is non-productive, hacking, persistent Airway is patent Respiratory effort is even, unlabored, Respiratory pattern is regular, symmetrical, Denies shortness of breath. GI: Reports diarrhea. : No signs and/or symptoms were reported regarding the genitourinary system. EENT: No signs and/or symptoms were reported regarding the EENT system. Derm: Skin is pale. Musculoskeletal: No signs and/or symptoms reported regarding the musculoskeletal system. Circulation, motion, and sensation intact. 13:16 Reassessment: Patient appears in no apparent distress at this time. No changes from 1 previously documented assessment. Patient and/or family updated on plan of care and expected duration. Pain level reassessed. Patient is alert, oriented x 3, equal unlabored respirations, skin warm/dry/pink. 14:24 Reassessment: Patient appears in no apparent distress at this time. No changes from aj1 previously documented assessment. Patient and/or family updated on plan of care and expected duration. Pain level reassessed. Patient is alert, oriented x 3, equal unlabored respirations, skin warm/dry/pink. 15:36 Reassessment: Patient appears in no apparent distress at this time. No changes from aj1 previously documented assessment. Patient and/or family updated on plan of care and expected duration. Pain level reassessed. Patient is alert, oriented x 3, equal unlabored respirations, skin warm/dry/pink. 16:25 Reassessment: Patient appears in no apparent distress at this time. No changes from aj1 previously documented assessment. Patient and/or family updated on plan of care and expected duration. Pain level reassessed. Patient is alert, oriented x 3, equal unlabored respirations, skin warm/dry/pink. Vital Signs: 11:07 BP 101 / 59; Pulse 104; Resp 16; Temp 99.2(O); Pulse Ox 100% ; Weight 74.84 kg; Height sv 5 ft. 6 in. (167.64 cm); Pain 5/10; 12:10 BP 93 / 59; Pulse 82; Resp 18; Pulse Ox 98% on R/A; aj1 13:16 BP 90 / 55; Pulse 81; Resp 12; Pulse Ox 100% on R/A; aj1 14:25 BP 104 / 79; Pulse 75; Resp 12; Pulse Ox 96% on R/A; aj1 15:36 BP 95 / 59; Pulse 79; Resp 18; Pulse Ox 100% on R/A; aj1 16:00 BP 112 / 80; Pulse 73; Resp 18; Pulse Ox 98% ; aj1 11:07 Body Mass Index 26.63 (74.84 kg, 167.64 cm) sv ED Course: 10:52 Patient arrived in ED. as 11:07 Triage completed. sv 11:08 Arm band placed on Patient placed in waiting room. sv 11:48 Ammy Gee, RN is Primary Nurse. aj1 11:57 Patient has correct armband on for positive identification. Bed in low position. Call aj1 light in reach. Side rails up X 1. 11:57 No provider procedures requiring assistance completed. aj1 12:14 Donovan Tovar NP is PHCP. pm1 12:14 Javy Maxwell MD is Attending Physician. pm1 12:30 Initial lab(s) drawn, by me, sent to lab. First set of blood cultures drawn by me. sg Inserted saline lock: 20 gauge in left antecubital area, using aseptic technique. Blood collected. 12:31 Warm blanket given. Pillow given. Pulse ox on. NIBP on. jp3 12:45 Second set of blood cultures drawn by me. sg 12:57 X-ray completed. Patient tolerated procedure well. jb2 12:58 Chest Pa And Lat (2 Views) XRAY In Process Unspecified. EDMS 13:10 Urine collected: clean catch specimen, clear, xiomara colored, Amount Voided: 100mL Flu jp3 and/or RSV swab sent to lab. 13:11 Urine --Ancillary (enter results) Sent. jp3 13:11 Urine Dipstick--Ancillary (enter results) Sent. jp3 13:11 Flu Sent. jp3 16:26 IV discontinued, intact, bleeding controlled, No redness/swelling at site. Pressure aj1 dressing applied. Administered Medications: No medications were administered Outcome: 16:06 Discharge ordered by . pm1 16:26 Discharged to home ambulatory. aj1 16:26 Condition: good 16:26 Discharge instructions given to patient, Instructed on discharge instructions, follow up and referral plans. no drinking with medication, no driving heavy equipment, medication usage, Demonstrated understanding of instructions, follow-up care, medications, Prescriptions given X 2. 16:27 Patient left the ED. aj1 Signatures: Dispatcher [employer] EDAmmy Sorto RN RN aj1 Manda Lawton RN RN sv Gay, Steven, RN RN sg Buechter, Jesse jb2 Martinez, Amelia as Marinas, Patrick, NP [employer] pm1 Boo Tam jp3 Corrections: (The following items were deleted from the chart) 11:08 11:07 BP 101 / 59; Pulse 104bpm; Resp 16bpm; Pulse Ox 100%; 74.84 kg; Height 5 ft. 6 sv in.; BMI: 26.6; Pain 5/10; sv
--- NOTE | 2018-05-01 16:07 | EDPHYS ---
Physician Documentation [facility] Name: Naz Wallis Age: 53 yrs Sex: Female : 1965 Arrival Date: 05/01/2018 Time: 10:52 Bed 4 Private MD: ED Physician Javy Maxwell HPI: 05/01 13:00 This 53 yrs old Female presents to ER via Ambulatory with complaints of pm1 Fever, Pain All Over. 13:00 The patient or guardian reports cough, with no sputum. Onset: The symptoms/episode pm1 began/occurred last night. Severity of symptoms: in the emergency department the symptoms have improved. Modifying factors: The symptoms are alleviated by Tylenol, the symptoms are aggravated by nothing. Associated signs and symptoms: Pertinent positives: fever, Pertinent negatives: chest pain, diarrhea, ear ache, nausea, rhinorrhea, sore throat, vomiting. The patient has been recently been admitted at [facility], was discharged last week, for similar complaints. Patient admitted last Friday for neutropenic fever with influenza. Patient discharged home in 3 days and without any fever or symptoms. Onset of fever last night with dry cough. Has not taken any antipyretics today. No chest pain or shortness of breath. Historical: - Allergies: 11:07 tramadol; sv - PMHx: 11:07 breast cancer; sv - PSHx: 11:07 double mastectomy; Breast implants; hemorroidectomy; nose; sv - Immunization history:: Adult Immunizations up to date. - Social history:: Smoking status: unknown. - Ebola Screening: : Patient denies travel to an Ebola-affected area in the 21 days before illness onset. ROS: 13:00 Eyes: Negative for injury, pain, redness, and discharge, ENT: Negative for injury, pm1 pain, and discharge, Neck: Negative for injury, pain, and swelling, Cardiovascular: Negative for chest pain, palpitations, and edema. 13:00 Abdomen/GI: Negative for abdominal pain, nausea, vomiting, diarrhea, and constipation, Back: Negative for injury and pain, : Negative for injury, bleeding, discharge, and swelling, MS/Extremity: Negative for injury and deformity, Skin: Negative for injury, rash, and discoloration, Neuro: Negative for headache, weakness, numbness, tingling, and seizure. 13:00 Constitutional: Positive for body aches, fever, Negative for poor PO intake. 13:00 Respiratory: Positive for cough, Negative for shortness of breath, sputum production, wheezing. Exam: 13:00 Constitutional: This is a well developed, well nourished patient who is awake, alert, pm1 and in no acute distress. Head/Face: Normocephalic, atraumatic. Eyes: Pupils equal round and reactive to light, extra-ocular motions intact. Lids and lashes normal. Conjunctiva and sclera are non-icteric and not injected. Cornea within normal limits. Periorbital areas with no swelling, redness, or edema. ENT: Nares patent. No nasal discharge, no septal abnormalities noted. Tympanic membranes are normal and external auditory canals are clear. Oropharynx with no redness, swelling, or masses, exudates, or evidence of obstruction, uvula midline. Mucous membranes moist. Neck: Trachea midline, no thyromegaly or masses palpated, and no cervical lymphadenopathy. Supple, full range of motion without nuchal rigidity, or vertebral point tenderness. No Meningismus. Chest/axilla: Normal chest wall appearance and motion. Nontender with no deformity. No lesions are appreciated. Cardiovascular: Regular rate and rhythm with a normal S1 and S2. No gallops, murmurs, or rubs. Normal PMI, no JVD. No pulse deficits. Respiratory: Lungs have equal breath sounds bilaterally, clear to auscultation and percussion. No rales, rhonchi or wheezes noted. No increased work of breathing, no retractions or nasal flaring. Abdomen/GI: Soft, non-tender, with normal bowel sounds. No distension or tympany. No guarding or rebound. No evidence of tenderness throughout. Back: No spinal tenderness. No costovertebral tenderness. Full range of motion. Skin: Warm, dry with normal turgor. Normal color with no rashes, no lesions, and no evidence of cellulitis. MS/ Extremity: Pulses equal, no cyanosis. Neurovascular intact. Full, normal range of motion. 13:00 Neuro: Orientation: is normal, Motor: is normal, Gait: is steady, at a normal pace, without difficulty. Vital Signs: 11:07 BP 101 / 59; Pulse 104; Resp 16; Temp 99.2(O); Pulse Ox 100% ; Weight 74.84 kg; Height sv 5 ft. 6 in. (167.64 cm); Pain 5/10; 12:10 BP 93 / 59; Pulse 82; Resp 18; Pulse Ox 98% on R/A; aj1 13:16 BP 90 / 55; Pulse 81; Resp 12; Pulse Ox 100% on R/A; aj1 14:25 BP 104 / 79; Pulse 75; Resp 12; Pulse Ox 96% on R/A; aj1 15:36 BP 95 / 59; Pulse 79; Resp 18; Pulse Ox 100% on R/A; aj1 16:00 BP 112 / 80; Pulse 73; Resp 18; Pulse Ox 98% ; aj1 11:07 Body Mass Index 26.63 (74.84 kg, 167.64 cm) sv MDM: 12:14 Patient medically screened. pm1 15:41 Data reviewed: vital signs. Data interpreted: Pulse oximetry: on room air is 100 %. pm1 Interpretation: normal. Counseling: I had a detailed discussion with the patient and/or guardian regarding: the historical points, exam findings, and any diagnostic results supporting the discharge/admit diagnosis, lab results, radiology results, the need for outpatient follow up, to return to the emergency department if symptoms worsen or persist or if there are any questions or concerns that arise at home. 05/01 12:25 Order name: Basic Metabolic Panel; Complete Time: 13:54 pm1 05/01 12:25 Order name: Blood Culture Adult (2) pm1 05/01 12:25 Order name: CBC with Diff; Complete Time: 16:04 pm05/01 12:25 Order name: Ckmb; Complete Time: 13:54 pm05/01 12:25 Order name: CPK; Complete Time: 13:54 pm05/01 12:25 Order name: Lactate; Complete Time: 13:21 pm05/01 12:25 Order name: LFT's; Complete Time: 13:54 pm05/01 12:25 Order name: Lipase; Complete Time: 13:54 pm05/01 12:25 Order name: Procalcitonin; Complete Time: 13:54 pm1 05/01 12:25 Order name: Protime (+inr); Complete Time: 13:54 pm05/01 12:25 Order name: Ptt, Activated; Complete Time: 13:54 pm1 05/01 12:25 Order name: Troponin (emerg Dept Use Only); Complete Time: 13:54 pm1 05/01 12:25 Order name: Urine Microscopic Only; Complete Time: 13:54 pm1 05/01 12:25 Order name: Flu pm1 05/01 12:25 Order name: Cardiac monitoring; Complete Time: 13:16 pm1 05/01 12:25 Order name: EKG - Nurse/Tech; Complete Time: 13:06 pm05/01 12:25 Order name: IV Saline Lock - Large Bore; Complete Time: 12:45 pm1 05/01 12:25 Order name: Labs collected and sent; Complete Time: 12:45 pm1 05/01 12:25 Order name: O2 Per Protocol; Complete Time: 12:45 pm1 05/01 12:25 Order name: O2 Sat Monitoring; Complete Time: 12:45 pm1 05/01 12:25 Order name: Urine Dipstick-Ancillary (obtain specimen); Complete Time: 13:06 pm1 05/01 12:25 Order name: Chest Pa And Lat (2 Views) XRAY; Complete Time: 13:07 pm1 05/01 13:08 Order name: Urine Dipstick--Ancillary (enter results); Complete Time: 13:21 eb 05/01 13:08 Order name: Urine --Ancillary (enter results); Complete Time: 13:21 eb 05/01 14:47 Order name: CBC Smear Scan; Complete Time: 16:04 EDMS Administered Medications: No medications were administered Disposition: 05/01/18 16:06 Discharged to Home. Impression: Acute upper respiratory infection, unspecified. - Condition is Stable. - Discharge Instructions: Upper Respiratory Infection, Adult. - Prescriptions for Zithromax Z- Demond 250 mg Oral Tablet - take 1 tablet by ORAL route as directed for 5 days Day 1 - take two (2) tablets one time. Day 2, 3, 4 , 5 take one (1) tablet once daily.; 6 tablet. Guaifenesin AC 10- 100 mg/5 mL Oral Liquid - take 10 milliliter by ORAL route every 4 hours As needed; 240 milliliter. - Medication Reconciliation Form, Thank You Letter, Antibiotic Education, Prescription Opioid Use form. - Follow up: Emergency Department; When: As needed; Reason: Worsening of condition. Follow up: Private Physician; When: 2 - 3 days; Reason: Recheck today's complaints, Continuance of care, Re-evaluation by your physician. - Problem is new. - Symptoms have improved. Addendum: 05/04/2018 06:58 Co-signature as Attending Physician, Javy Maxwell MD I agree with the assessment and k dr plan of care. Signatures: Dispatcher [employer] EDMS Ammy Gee RN RN aj1 Manda Lawton RN RN Javy Maxwell MD MD [facility] Donovan Tovar, [employer] SUPERVISOR [employer]ICATION SUPERVISOR pm1 Corrections: (The following items were deleted from the chart) 05/01 16:27 16:06 05/01/2018 16:06 Discharged to Home. Impression: Acute upper respiratory aj1 infection, unspecified. Condition is Stable. Forms are Medication Reconciliation Form, Thank You Letter, Antibiotic Education, Prescription Opioid Use. Follow up: Emergency Department; When: As needed; Reason: Worsening of condition. Follow up: Private Physician; When: 2 - 3 days; Reason: Recheck today's complaints, Continuance of care, Re-evaluation by your physician. Problem is new. Symptoms have improved. pm1
[2018-05-01 16:33] VITALS: TEMP 99.2
[2018-05-01 16:39] VITALS: BP 112/80; O2SAT 98
--- NOTE | 2018-05-02 07:17 | EKG ---
Test Date: 2018-05-01 Test Time: 12:55:53 Veterans Contact Representative: J CARLOS MEASUREMENT RESULTS: Intervals: Rate: 86 AL: 140 QRSD: 78 QT: 348 QTc: 416 [place]: P: 52 AL: 140 QRS: 28 T: 49 INTERPRETIVE STATEMENTS: Normal sinus rhythm Normal ECG Compared to ECG 04/20/2018 16:49:10 T-wave abnormality no longer present Electronically Signed On 05-02-18 07:16:32 WATER INSPECTOR by Reinier Andino
== END 2018-05-01 16:27 | disposition home or self-care (01) ==
LOC: ER 10:50
DX: J06.9 Acute upper respiratory infection, unspecified (principal); Z88.6 Allergy status to analgesic agent
CPT/HCPCS: 36415; 71046; 80048; 80076; 81003; 81015; 81025; 82550; 82553; 83605; 83690; 84145; 84484; 85025; 85610; 85730; 87040; 87804; 93005; 99284